=== PATIENT | male | born 1945 | race Caucasian/White ===

== ENCOUNTER 2017-05-28 05:19 | Emergency (ER) | payer MEDICARE, OTHER ==
--- NOTE | 2017-05-28 05:53 | EDM.PDOC ---
ED HPI GENERAL MEDICAL PROBLEM - General Chief Complaint: Genitourinary Problem Stated Complaint: BLOOD IN URINE Time Seen by Provider: 05/28/17 05:50 Source of Information: Reports: Patient, RN Notes Reviewed - History of Present Illness INITIAL COMMENTS - FREE TEXT/NARRATIVE: 71-year-old gentleman had an episode of hematuria about an hour ago at home and also when he did spit into the toilet or saying there was blood-tinged to his sputum. He has not been coughing. He is not had a nosebleed. He is not aware of biting his tongue or any sores or lesions within his mouth. He is on xarelto for chronic atrial fibrillation. He does not feel weak dizzy or lightheaded. He is never had hematuria before. He has not been having any other bleeding type difficulties or easy bruising. - Related Data Allergies Allergy/AdvReac Type Severity Reaction Status Date / Time pseudocholinesterase Allergy Cannot Uncoded 05/28/17 05:29 Remember Home Meds: Home Meds Aspirin 81 mg PO DAILY 05/28/17 [History] Finasteride 5 mg PO DAILY 05/28/17 [History] Glucosamine/Chondro Gold A [Cosamin DS] 1 tab PO BID 05/28/17 [History] Losartan/Hydrochlorothiazide [Losartan-HCTZ 100-12.5 MG] 1 tab PO DAILY [History] Metoprolol Tartrate 50 mg PO DAILY 05/28/17 [History] Rivaroxaban [Xarelto] 20 mg PO DAILY 05/28/17 [History] Simvastatin [Zocor] 20 mg PO DAILY 05/28/17 [History] amLODIPine [Norvasc] 2.5 mg PO DAILY 05/28/17 [History] Past Medical History Cardiovascular History: Reports: Afib, High Cholesterol, Hypertension - Past Surgical History GI Surgical History: Reports: Appendectomy Social & Family History - Family History Family Medical History: Noncontributory - Tobacco Use Smoking Status *Q: Never Smoker Second Hand Smoke Exposure: No - Caffeine Use Caffeine Use: Reports: Coffee - Recreational Drug Use Recreational Drug Use: No ED ROS GENERAL - Review of Systems Review Of Systems: See Below Constitutional: Denies: Fever, Chills, Diaphoresis HEENT: Denies: Throat Pain Respiratory: Denies: Shortness of Breath, Pleuritic Chest Pain, Hemoptysis Cardiovascular: Denies: Chest Pain GI/Abdominal: Denies: Abdominal Pain, Nausea, Vomiting Musculoskeletal: Reports: No Symptoms Skin: Denies: Bruising, Rash Neurological: Denies: Dizziness ED EXAM, RENAL/ - Physical Exam Exam: See Below General Appearance: Alert, No Apparent Distress Throat/Mouth: Normal Oropharynx, Other (He has a trace of blood tinged saliva right cheek but no bleeding site identified) Neck: Supple, Full Range of Motion Respiratory/Chest: No Respiratory Distress, Lungs Clear, Normal Breath Sounds Cardiovascular: Regular Rate, Rhythm GI/Abdominal: Soft, Non-Tender. No: Guarding Neurological: Alert, Oriented, No Motor/Sensory Deficits Skin Exam: Warm, Dry, Normal Color Course - Vital Signs Last Recorded V/S: Last Vital Signs Temp 95.2 F L 05/28/17 05:25 Pulse 81 05/28/17 05:25 Resp 16 05/28/17 05:25 BP 160/103 H 05/28/17 05:25 Pulse Ox 98 05/28/17 05:25 - Orders/Labs/Meds Labs: Laboratory Tests 05/28/17 05/28/17 Range/Units 05:40 06:10 WBC 5.06 (4.23-9.07) K/mm3 RBC 5.04 (4.63-6.08) M/mm3 Hgb 15.9 (13.7-17.5) gm/L Hct 45.2 (40.1-51.0) % MCV 89.7 (79.0-92.2) fl MCH 31.5 (25.7-32.2) pg MCHC 35.2 (32.2-35.5) g/dl RDW Std Deviation 42.0 (35.1-43.9) fL Plt Count 172 (163-337) K/mm3 MPV 9.8 (9.4-12.3) fl Neut % (Auto) 56.1 (34.0-67.9) % Lymph % (Auto) 29.4 (21.8-53.1) % [place] % (Auto) 10.1 (5.3-12.2) % Eos % (Auto) 3.6 (0.8-7.0) Baso % (Auto) 0.6 (0.1-1.2) % Neut # (Auto) 2.84 (1.78-5.38) K/mm3 Lymph # (Auto) 1.49 (1.32-3.57) K/mm3 [place] # (Auto) 0.51 (0.30-0.82) K/mm3 Eos # (Auto) 0.18 (0.04-0.54) K/mm3 Baso # (Auto) 0.03 (0.01-0.08) K/mm3 Urine Color Yellow (Yellow) Urine Appearance Clear (Clear) Urine pH 5.5 (5.0-8.0) Ur Specific [place] 1.020 (1.005-1.030) Urine Protein Negative (Negative) Urine Glucose (UA) Negative (Negative) Urine Ketones Negative (Negative) Urine Occult Blood Trace-lysed H (Negative) Urine Nitrite Negative (Negative) Urine Bilirubin Negative (Negative) Urine Urobilinogen 0.2 (0.2-1.0) Ur Leukocyte Esterase Negative (Negative) Urine RBC 0-5 (0-5) /hpf Urine WBC Not seen (0-5) /hpf Ur Epithelial Cells Not seen (0-5) /hpf Urine Bacteria Not seen (FEW) /hpf Urine Mucus Few (FEW) /hpf - Re-Assessments/Exams Free Text/Narrative Re-Assessment/Exam: 05/28/17 06:13 Patient has voided and UA has been sent over for analysis. There is not gross hematuria at this time. When I did have him spit into a cup saliva was definitely blood tinged. However when I did recheck his mouth once again no sign of where that was coming from. No active bleeding site visible at time of exam. 05/28/17 07:06. CBC is come back normal, UA trace RBCs only. I did have him spit again and once again the sputum is very mildly blood tinged, continues to show no obvious source. 05/28/17 07:10. We did hokum the threat monitoring analyst check rhythm, he is an atrophic and must running that chronically. Heart rate 79. I did look in his mouth again for any source of obvious bleeding and once again no sores visible. I will have him stop Zarrella toe and aspirin for 2 days. Discharge instructions as documented. Departure - Departure Time of Disposition: :17 Disposition: Home, Self-Care 01 Condition: Fair Clinical Impression: Hemorrhage Hematuria Qualifiers: Hematuria type: unspecified type Qualified Code(s): R31.9 - Hematuria, unspecified - Discharge Information Referrals: Ethan Jackson MD [Primary Care Provider] - Forms: ED Department Discharge Additional Instructions: No source of bleeding visible inside your mouth while here in the ED. your blood counts were normal, urinalysis was clear. It is recommended that you do stop your Xarelto and aspirin for 2 days and then resume as previously prescribed as long as you are having no further bleeding difficulty. Follow-up with Dr. Jackson as needed, return to ED if symptoms worsening in any way.
== END 2017-05-28 07:26 | disposition home or self-care (01) ==
LOC: JD.ED 05:19
DX: R58 Hemorrhage, not elsewhere classified (principal); R31.9 Hematuria, unspecified; I10 Essential (primary) hypertension; Z79.82 Long term (current) use of aspirin; Z79.899 Other long term (current) drug therapy
CPT/HCPCS: 36415; 81001; 85025; 99282; 99283

== ENCOUNTER 2019-03-08 14:59 | Emergency (ER) | payer MEDICARE, OTHER ==
--- NOTE | 2019-03-08 15:44 | EDM.PDOC ---
ED HPI GENERAL MEDICAL PROBLEM - General Chief Complaint: Lower Extremity Injury/Pain Stated Complaint: SWELLING AND REDNESS IN FOOT AFTER SURGERY Time Seen by Provider: 03/08/19 15:28 Source of Information: Reports: Patient History Limitations: Reports: No Limitations - History of Present Illness INITIAL COMMENTS - FREE TEXT/NARRATIVE: 73-year-old male presents the ED for evaluation of surgical wound right leg. Patient had a total knee replacement carried up by Dr. Souza orthopedic surgeon at [facility] in [facility] one week ago. Patient is on Xarelto 20 mg once daily because of chronic atrial fibrillation. Apparently was taken off the medication only for the day prior to surgery. Placed back on the day after surgery. He states the knee itself of course feel stiff and was only hurting bad for a couple of days. He's taken occasional tramadol tablet for pain otherwise only Tylenol. He is started to home physiotherapy exercise program at [facility]. He's been icing the wound for the most part. Concern arose today where the people looked at his leg and identified that he had bruising extensively elevated down the leg including his ankle foot and plantar surface of the foot. He therefore came to the ED for evaluation. He is walking with a walker. Onset: Gradual Onset Date: 03/01/19 (Had right total knee replacement a week ago in [place].) Duration: Day(s):, Getting Worse (Bruising and swelling in the right lower extremity of seem to be getting worse.) Location: Reports: Lower Extremity, Right Quality: Reports: Ache (Mild ache in the knee itself. No pain in the foot or ankle) Severity: Mild Improves with: Reports: None Worsens with: Reports: None Context: Reports: Other (Had right total knee replacement week ago.). Denies: Activity, Exercise, Lifting, Sick Contact, Trauma Associated Symptoms: Reports: Rash (Its extensive ecchymoses of the entire right leg with associated swelling.). Denies: Confusion, Chest Pain, Cough, cough w sputum, Diaphoresis, Fever/Chills, Headaches, Loss of Appetite, Malaise , Nausea/Vomiting, Seizure Treatments CAN SEALER: Reports: Acetaminophen, Other (see below) - Related Data Allergies Allergy/AdvReac Type Severity Reaction Status Date / Time pseudocholinesterase Allergy Cannot Uncoded 03/08/19 15:20 Remember Home Meds: Home Meds Aspirin 81 mg PO DAILY 05/28/17 [History] Finasteride 5 mg PO DAILY 05/28/17 [History] Rivaroxaban [Xarelto] 20 mg PO DAILY 05/28/17 [History] Acetaminophen 650 mg PO Q6H 03/08/19 [History] Famotidine 20 mg PO BID 03/08/19 [History] Losartan [Cozaar] 100 mg PO DAILY 03/08/19 [History] Meloxicam 15 mg PO BEDTIME 03/08/19 [History] Metoprolol Succinate [Toprol XL 50mg] 50 mg PO DAILY 03/08/19 [History] Polyethylene Glycol 3350 [MiraLAX] 17 gm PO DAILY 03/08/19 [History] Sennosides/Docusate Sodium [Senna-Docusate Sodium Tablet] 1 tab PO BID 03/08/19 [History] atorvaSTATin [Lipitor] 20 mg PO DAILY 03/08/19 [History] hydroCHLOROthiazide [Hydrochlorothiazide] 50 mg PO DAILY 03/08/19 [History] oxyCODONE 5 - 10 mg PO Q4H PRN 03/08/19 [History] traMADol [Ultram] 50 mg PO Q6H PRN 03/08/19 [History] Past Medical History Cardiovascular History: Reports: Afib (Is on baby aspirin and Eliquis daily), High Cholesterol, Hypertension Musculoskeletal History: Reports: Arthritis (Involving right knee primarily both hips low back), Osteoarthritis - Past Surgical History GI Surgical History: Reports: Appendectomy Musculoskeletal Surgical History: Reports: Knee Replacement (Right total knee replacement carried out March 01) Social & Family History - Family History Family Medical History: Noncontributory - Caffeine Use Caffeine Use: Reports: Coffee - Living Situation & Occupation Living situation: Reports: , with Spouse (Spouse has multiple sclerosis. Currently staying at [facility] for rehabilitation.) Occupation: Retired Review of Systems - Review of Systems Review Of Systems: See Below Constitutional: Denies: Chills, Diaphoresis, Fever, Weakness, Other Eyes: Reports: Glasses Nose: Reports: No Symptoms Mouth/Throat: Reports: No Symptoms Respiratory: Reports: No Symptoms. Denies: Shortness of Breath, Wheezing, Pleuritic Chest Pain Cardiovascular: Reports: Other (Chronic atrial fibrillation for many years. He is currently on Xarelto 20 mg once daily.) GI/Abdominal: Reports: No Symptoms Genitourinary: Reports: Other (Apparently his urine is dark in color as reported by nurse at [facility].) Musculoskeletal: Reports: Other (Patient presented to the ED at the request of nursing staff from [facility]. He is 1 week post total right knee replacement. Self is markedly ecchymotic both above and below the surgical wound including ecchymoses down to the foot and ankle. This is because he is on Xarelto and his expressed a lot more soft tissue bleeding than would be normally anticipated.) Skin: Reports: Bruising (Has ecchymoses both the problem below the knee on the right side.) Neurological: Reports: No Symptoms, Difficulty Walking (Due to right total knee replacement is walking with a walker.). Denies: Confusion, Dizziness, Headache , Numbness, Syncope, Tingling, Weakness Psychiatric: Reports: No Symptoms ED EXAM, GENERAL - Physical Exam Exam: See Below Exam Limited By: No Limitations General Appearance: Alert, WD/WN, No Apparent Distress, Other (Vital signs are normal with pulse 91 I A. fib controlled rate. Respiratory to 16 sats 97% on room air BP mildly elevated 148/85.) Eye Exam: Bilateral Eye: Normal Inspection Cardiovascular: Normal Peripheral Pulses, No Gallop (Atrial fibrillation chronically), No Murmur, No Rub, Irregularly Irregular Peripheral Pulses: 0: Posterior Tibial (R) (Not able to feel pulses in his right foot due to severe edema. They are found on Doppler ultrasound.), Dorsalis Pedis (R) GI/Abdominal: Normal Bowel Sounds, Soft, Non-Tender, No Organomegaly. No: No Abnormal Bruit, No Mass, Pelvis Stable Extremities: Other (Examination of his right lower extremity shows ecchymoses posterior thigh almost up to the pelvic brim. There is significant ecchymoses and swelling of the total knee at the site of surgery. The galdino are in good position with no sign of infection. There is increased edema of the entire leg down to the foot with edema of the dorsal foot as well. There is ecchymoses scattered throughout the entire right lower extremity to include the calcaneus and plantar surface of the foot especially medially. This is excessive amount of bruising and swelling but it's secondary to being on Xarelto for his A. fib. There is clinically no evidence of a DVT. The foot is warm to palpation.) Neurological: Alert, Oriented, CN II-XII Intact, Normal Cognition, Other ( Walking with aid of a walker.) Psychiatric: Normal Affect, Normal Mood Skin Exam: Warm, Dry, Intact, Ecchymosis, Other (Patches of erythema anterior right leg but not significantly warm to suggest a cellulitis.) Course - Vital Signs Last Recorded V/S: Last Vital Signs Temp 36.2 C 03/08/19 15:17 Pulse 91 03/08/19 15:17 Resp 16 03/08/19 15:17 BP 148/85 H 03/08/19 15:17 Pulse Ox 97 03/08/19 15:17 - Orders/Labs/Meds Orders: Active Orders 24 hr Category Date Time Status URINALYSIS W/MICROSCOPIC [UA W/MICROSCOPIC] [URIN] Stat Lab 03/08/19 16:00 Received - Radiology Interpretation Free Text/Narrative:: 73-year-old male presents to the ED for evaluation of right total knee surgical wound which was done a week ago by Dr. Souza at [facility] in [place]. Is on Zaroxolyn 20 mg daily and was discontinued for one day preoperatively and then started the following day. Therefore he has suffered a lot more bruising to the lower extremity than one would anticipate. Oozing travels all way down the leg to the medial aspect of his foot involving the calcaneus and plantar surface of the foot. He also has ecchymoses up to his groin posteriorly on the thigh. The wound itself is looking normal and the dressings were changed as it was dried blood over the galdino. And edema in the lower extremity but no signs of a blood clot clinically. Analysis was checked because of reported dark urine it does contain a bit of urobilinogen which is breakdown product of red cells secondary to body breaking down the leakage of blood into his right lower extremity after surgery. Patient advised to simply drink a little more fluid and he admits that he's not been drinking as much fluid so he does not get up to the bathroom so often. Patient reassured. Dressing changes were done. Expect swelling to go down over the next week to 10 days. - Re-Assessments/Exams Free Text/Narrative Re-Assessment/Exam: 03/08/19 16:13 urine provided was dipped in the department. It shows no signs of infection. It is showing 3+ urobilinogen and trace of red blood cells. Urobilinogen is making the urine looked darker than normal but in the ED it looked dark rody in color. Departure - Departure Time of Disposition: 15:41 Disposition: Home, Self-Care 01 Condition: Fair Clinical Impression: Visit for wound check - Discharge Information *PRESCRIPTION DRUG MONITORING PROGRAM REVIEWED*: Not Applicable *COPY OF PRESCRIPTION DRUG MONITORING REPORT IN PATIENT TIA: Not Applicable Instructions: Total Knee Replacement, Care After, [id number] Referrals: Ethan Jackson MD [Primary Care Provider] - Forms: ED Department Discharge Additional Instructions: Evaluation in the emergency room today in regards to surgical review after having right total knee replacement done by Dr. Souza at [facility] one week ago. You're on Eliquis chronically and were taken off for short period of time before the surgery was completed started back on the following day of her surgery. Glucose today as there is marked edema/soft tissue swelling in the left lower extremity with marked bruising both above and below the surgical wound with bruises showing up around the ankle and plantar surface of the foot. On review the wound itself is healing adequately. Galdino are in good position with no signs of infection. 100 areas of erythema anterior aspect of the leg which is still due to blood underneath the skin that is been pulled down to the foot by gravity drainage. There is no clinically no evidence of deep venous thrombosis in the right lower extremity. There is increased swelling in the lower extremity due to being on Eliquis. At this time I do not appreciate any signs of infection in the lower extremity. Continue physical therapy exercise programs as per your norm and walk as you can tolerate. Not walking any to elevate the leg is much as possible to promote drainage and perform calf contractions by lifting your toes up as high as possible in squeezing the calf muscles for 5 seconds as time at least 10 times per hour. Heat packs to the lower extremity would also help your body will reabsorb the blood that is under the skin . Ice for comfort as needed but he will be more effective in helping the swelling go down over the next week. The bruising will take a good 3 weeks to go away completely. The dressing was covered with dried blood and therefore the dressing was changed on the surgical wound. Continue all medications as you are already doing. Suggest heat packs to the entire leg for one half hour out of every 4 hours while awake until the swelling goes down. Of note the urinalysis done in the ED is completely normal other than a trace of urobilinogen which would make the urine darker in color than normal. [place] gravity was 1.020 indicating it is moderately concentrated which causes look darker than normal. - My Orders Last 24 Hours: My Active Orders 03/08/19 16:00 URINALYSIS W/MICROSCOPIC [UA W/MICROSCOPIC] [URIN] Stat - Assessment/Plan Last 24 Hours: My Active Orders 03/08/19 16:00 URINALYSIS W/MICROSCOPIC [UA W/MICROSCOPIC] [URIN] Stat
== END 2019-03-08 16:25 | disposition home or self-care (01) ==
LOC: JD.ED 14:59
DX: M96.840 Postprocedural hematoma of a musculoskeletal structure following a musculoskeletal system procedure (principal); I48.91 Unspecified atrial fibrillation; E78.00 Pure hypercholesterolemia, unspecified; Z88.8 Allergy status to other drugs, medicaments and biological substances; Z79.82 Long term (current) use of aspirin; Z79.899 Other long term (current) drug therapy; Z79.01 Long term (current) use of anticoagulants
CPT/HCPCS: 81001; 99283

== ENCOUNTER 2022-07-25 11:36 | Inpatient (IN) | payer MEDICARE, OTHER ==
[2022-07-25] MEDS ORDERED: Metoclopramide 10 MG/2 ML SDV IVPUSH ONE (11:49)
[2022-07-25] MEDS ORDERED: Dextrose 5%-0.9% NaCl 1,000 ML IV SCH (12:00)
[2022-07-25] MEDS ORDERED: Iopamidol 612 MG/ML 50 ML SDV IVPUSH ONE (13:15)
[2022-07-25] MEDS ORDERED: Iopamidol 612 MG/ML 100 ML Bottle IVPUSH ONE (13:15)
[2022-07-25] MEDS ORDERED: Sodium Chloride 0.9% 10 ML Syringe FLUSH PRN (13:15)
[2022-07-25] MEDS ORDERED: Lidocaine 4% Top Soln 50 ML Bottle MUCMEM ONE (14:49)
[2022-07-25] MEDS ORDERED: oxyCODONE 5 MG Tab PO PRN (15:43)
[2022-07-25] MEDS ORDERED: Ondansetron 4 MG Tab.DIS PO PRN (15:43)
[2022-07-25 16:49] LABS: CORONAVIRUS COVID-19 NAA NEGATIVE (NEGATIVE)
[2022-07-25] MEDS: Sodium Chloride 0.9% 1,000 ML IV SCH (17:46)
[2022-07-26] MEDS: Sodium Chloride 0.9% 1,000 ML IV SCH (01:55)
[2022-07-26] MEDS ORDERED: Morphine 2 MG/ML SYRINGE IVPUSH PRN (08:26)
[2022-07-26] MEDS ORDERED: Metoprolol Tartrate 5 MG/5 ML SDV IVPUSH PRN (08:26)
[2022-07-26] MEDS ORDERED: Ondansetron 4 MG/2 ML SDV IVPUSH PRN (08:26)
[2022-07-26 08:54] LABS: HEMOGLOBIN A1C 6.9 %
[2022-07-26] MEDS ORDERED: Metoprolol Succinate 50 MG Tab.ER PO SCH (09:00)
[2022-07-26] MEDS: Heparin Sodium 5,000 Units/ML Vial SUBCUT SCH ×2 (09:49→17:13)
[2022-07-26] MEDS: Lactated Ringers 1,000 ML IV SCH ×2 (10:36→17:13)
[2022-07-26] MEDS ORDERED: Magnesium Sulfate/Water 2 GM in Premix Bag 1 BAG IV ONE (13:00)
[2022-07-26] MEDS ORDERED: Pantoprazole 40 MG Vial IVPUSH ONE (13:15)
[2022-07-26] MEDS ORDERED: Albuterol/Ipratropium 3.0-0.5 MG/3 ML Neb Soln NEB PRN (14:11)
[2022-07-26] MEDS: Pantoprazole 40 MG Vial IVPUSH SCH (20:59)
[2022-07-27] MEDS: Lactated Ringers 1,000 ML IV SCH ×2 (01:10→08:47)
[2022-07-27] MEDS: Heparin Sodium 5,000 Units/ML Vial SUBCUT SCH ×3 (01:10→16:47)
[2022-07-27] MEDS: Pantoprazole 40 MG Vial IVPUSH SCH ×2 (08:48→21:45)
[2022-07-27] MEDS ORDERED: Diatrizoate Meglumine/Diatrizoate Sodium 37% 120 ML Bottle PO ONE (12:26)
[2022-07-28] MEDS: Heparin Sodium 5,000 Units/ML Vial SUBCUT SCH ×2 (01:00→09:25)
[2022-07-28] MEDS: Pantoprazole 40 MG Vial IVPUSH SCH (09:26)
== END 2022-07-28 14:03 | disposition home or self-care (01) | DRG 389 ==
LOC: JD.ED 11:36 → JD.MS 15:18
PROVIDERS: ADMIT Internal Medicine; ATTEND Internal Medicine
PROC: 0D9670Z Drainage of Stomach with Drainage Device, Via Natural or Artificial Opening (ICD-10-PCS; principal; 2022-07-25)
DX: K56.609 Unspecified intestinal obstruction, unspecified as to partial versus complete obstruction (principal); K56.50 Intestinal adhesions [bands], unspecified as to partial versus complete obstruction; R55 Syncope and collapse; S00.01XA Abrasion of scalp, initial encounter; R53.1 Weakness; R29.6 Repeated falls; E87.20 Acidosis, unspecified; I48.20 Chronic atrial fibrillation, unspecified; J10.1 Influenza due to other identified influenza virus with other respiratory manifestations; E78.00 Pure hypercholesterolemia, unspecified; Z79.01 Long term (current) use of anticoagulants; I10 Essential (primary) hypertension; Z79.84 Long term (current) use of oral hypoglycemic drugs; M19.90 Unspecified osteoarthritis, unspecified site; W18.30XA Fall on same level, unspecified, initial encounter; Z20.822 Contact with and (suspected) exposure to COVID-19; H91.90 Unspecified hearing loss, unspecified ear; Z96.651 Presence of right artificial knee joint; Z66 Do not resuscitate; K56.7 Ileus, unspecified; B99.9 Unspecified infectious disease; E78.5 Hyperlipidemia, unspecified; E83.42 Hypomagnesemia; Z79.82 Long term (current) use of aspirin; Z79.899 Other long term (current) drug therapy; Z88.8 Allergy status to other drugs, medicaments and biological substances
CPT/HCPCS: 0241U; 36415; 43752; 70450; 70450-26; 71045; 71045-26; 74018; 74018-26; 74019; 74019-26; 74177; 74177-26; 80053; 81001; 82947; 83036; 83605; 83735; 83880; 84100; 84484; 85025; 85610; 85730; 86140; 93005; 93010; 93307; 96361; 96374; 97162-GP; 99222; 99232; 99233; 99239; 99284; 99285-25; C9113; J1644; J2765; J3475; J3490; J7030; J7042; J7120; Q9963; Q9967

== ENCOUNTER 2022-10-09 10:23 | Emergency (ER) | payer MEDICARE, OTHER ==
[2022-10-09] MEDS ORDERED: Sodium Chloride 0.9% 10 ML Syringe FLUSH PRN (10:32)
[2022-10-09] MEDS ORDERED: Sodium Chloride 0.9% 1,000 ML IV ONE (11:18)
== END 2022-10-09 14:01 | disposition home or self-care (01) ==
LOC: JD.ED 10:23
DX: I95.89 Other hypotension (principal); I48.91 Unspecified atrial fibrillation; E78.00 Pure hypercholesterolemia, unspecified; I10 Essential (primary) hypertension; Z79.01 Long term (current) use of anticoagulants; Z79.899 Other long term (current) drug therapy; Z88.8 Allergy status to other drugs, medicaments and biological substances
CPT/HCPCS: 36415; 71045; 80053; 83735; 83880; 84484; 85025; 85610; 85730; 93005; 96360; 99285; J7030; 93010; 99283

== ENCOUNTER 2022-10-24 08:44 | Emergency (ER) | payer MEDICARE, OTHER ==
[2022-10-24] MEDS ORDERED: Sodium Chloride 0.9% 10 ML Syringe FLUSH PRN (10:09)
[2022-10-24 14:12] LABS: CORONAVIRUS COVID-19 NAA POSITIVE (NEGATIVE)
== END 2022-10-24 14:55 | disposition home or self-care (01) ==
LOC: JD.ED 08:44
DX: U07.1 COVID-19 (principal); I48.91 Unspecified atrial fibrillation; E78.00 Pure hypercholesterolemia, unspecified; I10 Essential (primary) hypertension; Z88.8 Allergy status to other drugs, medicaments and biological substances; Z79.01 Long term (current) use of anticoagulants; Z79.899 Other long term (current) drug therapy
CPT/HCPCS: 0241U; 36415; 71045; 80053; 83735; 83880; 84443; 84484; 85025; 86140; 93005; 99285; J3490; 93010; 99283

== ENCOUNTER 2022-12-11 07:48 | Day surgery (SDC) | payer MEDICARE, OTHER ==
[2022-12-11] MEDS ORDERED: Lactated Ringers 1,000 ML IV SCH (08:00)
[2022-12-11] MEDS ORDERED: Lidocaine 1%/Sod Bicarbonate in NS 8.4% 1 ML Syringe IDERM PRN (08:00)
[2022-12-11] MEDS ORDERED: Propofol 200 MG/20 ML SDV ONE ×2 (08:48→09:47)
[2022-12-11] MEDS ORDERED: fentaNYL 100 MCG/2 ML SDV ONE (08:48)
[2022-12-11] MEDS ORDERED: Lidocaine 1% 4 ML ONE (08:48)
[2022-12-11] MEDS ORDERED: Sodium Chloride 0.9% 10 ML Syringe FLUSH SCH (09:00)
== END 2022-12-11 11:30 | disposition home or self-care (01) ==
LOC: JD.SDS 07:48
PROVIDERS: ATTEND Surgery
DX: K29.50 Unspecified chronic gastritis without bleeding (principal); K56.609 Unspecified intestinal obstruction, unspecified as to partial versus complete obstruction; K21.9 Gastro-esophageal reflux disease without esophagitis; K63.89 Other specified diseases of intestine; Q43.8 Other specified congenital malformations of intestine; I10 Essential (primary) hypertension; E78.00 Pure hypercholesterolemia, unspecified; G47.33 Obstructive sleep apnea (adult) (pediatric); R73.03 Prediabetes; I48.21 Permanent atrial fibrillation; Z98.890 Other specified postprocedural states; Z90.49 Acquired absence of other specified parts of digestive tract; Z79.899 Other long term (current) drug therapy; Z79.84 Long term (current) use of oral hypoglycemic drugs; Z87.891 Personal history of nicotine dependence
CPT/HCPCS: 43239; 45378; J2704; J3010; J7120; J3490

== ENCOUNTER 2023-04-29 10:57 | Emergency (ER) | payer MEDICARE, OTHER ==
[2023-04-29] MEDS ORDERED: Sodium Chloride 0.9% 1,000 ML IV SCH (11:30)
[2023-04-29 11:45] LABS: BASOPHILS PERCENT AUTO 0.3 % (0.0-1.0); EOSINOPHILS ABSOLUTE AUTO 0.1 K/mm3 (0.0-0.4); EOSINOPHILS PERCENT AUTO 0.5 % (0.0-6.0); HEMATOCRIT 44.3 % (42.0-52.0); HEMOGLOBIN 15.1 gm/dl (14.0-18.0); IMMATURE GRAN ABSOLUTE AUTO 0.04 K/mm3 (0.00-0.05); IMMATURE GRAN PERCENT AUTO 0.3 % (0.0-0.4); LYMPHOCYTES ABSOLUTE AUTO 0.9 K/mm3 (1.0-4.8); LYMPHOCYTES PERCENT AUTO 7.8 % (24.0-44.0); MEAN CORPUSCULAR HEMOGLOBIN 32.5 pg (28.0-32.0); MEAN CORPUSCULAR HGB CONC 34.1 g/dl (32.0-36.0); MEAN CORPUSCULAR VOLUME 95.3 fl (83.0-99.0); MONOCYTES ABSOLUTE AUTO 0.9 K/mm3 (0.0-0.8); MONOCYTES PERCENT AUTO 7.6 % (0.0-8.0); NEUTROPHILS ABSOLUTE AUTO 9.7 K/mm3 (1.8-7.7); NEUTROPHILS PERCENT AUTO 83.5 % (41.0-71.0); PLATELET COUNT,PLT 171 K/mm3 (150-400); RED BLOOD CELL COUNT 4.65 M/mm3 (4.52-5.90); WHITE BLOOD CELL COUNT,WBC 11.58 K/mm3 (3.9-11.3)
[2023-04-29] MEDS ORDERED: Metoclopramide 10 MG/2 ML SDV IVPUSH ONE (11:52)
[2023-04-29 12:08] LABS: ANION GAP 17.3 (5-15); BILIRUBIN TOTAL 1.2 mg/dL (0.2-1.0); C-REACTIVE PROTEIN 0.6 mg/dL (<1.0); CALCIUM 9.6 mg/dL (8.5-10.1); EST CRCL DRUG DOSING (CG) 67.69 mL/min; POTASSIUM,K 4.3 mEq/L (3.5-5.1); PROTEIN TOTAL,TP 7.9 g/dl (6.4-8.2)
[2023-04-29 13:05] LABS: APPEARANCE,URINE CLEAR (Clear); BILIRUBIN,URINE NEGATIVE (Negative); COLOR,URINE YELLOW (Yellow); GLUCOSE,URINE NEGATIVE (Negative); KETONES,URINE TRACE (Negative); LEUKOCYTE ESTERASE,URINE NEGATIVE (Negative); NITRITE,URINE NEGATIVE (Negative); OCCULT BLOOD,URINE NEGATIVE (Negative); PH,URINE 5.5 (5.0-8.0); PROTEIN,URINE NEGATIVE (Negative)
[2023-04-29] MEDS ORDERED: Magnesium Citrate Solution 296 ML Bottle PO ONE (14:57)
[2023-04-29 19:55] LABS: BACTERIA,URINE FEW /hpf (FEW); MUCUS,URINE MANY /hpf (FEW); RBC,URINE 0-5 /hpf (0-5); SQUAMOUS EPITHELIAL CELLS,UR 0-5 /hpf (0-5); WBC,URINE 0-5 /hpf (0-5)
== END 2023-04-29 15:28 | disposition home or self-care (01) ==
LOC: JD.ED 10:57
DX: S00.03XA Contusion of scalp, initial encounter (principal); R55 Syncope and collapse; K56.600 Partial intestinal obstruction, unspecified as to cause; I48.91 Unspecified atrial fibrillation; E78.00 Pure hypercholesterolemia, unspecified; I10 Essential (primary) hypertension; Z88.8 Allergy status to other drugs, medicaments and biological substances; Z79.84 Long term (current) use of oral hypoglycemic drugs; Z79.01 Long term (current) use of anticoagulants; Z79.899 Other long term (current) drug therapy; W18.30XA Fall on same level, unspecified, initial encounter; Y92.481 Parking lot as the place of occurrence of the external cause
CPT/HCPCS: 36415; 70450; 74018; 80053; 81001; 82947; 84484; 85025; 86140; 93005; 96361; 96374; 99285; A9270; J2765; J7030; 93010; 99284

== ENCOUNTER 2024-05-26 05:51 | Emergency (ER) | payer MEDICARE, OTHER ==
[2024-05-26] MEDS ORDERED: Sodium Chloride 0.9% 10 ML Syringe FLUSH PRN (06:02)
[2024-05-26 07:14] LABS: BASOPHILS PERCENT AUTO 0.5 % (0.0-1.0); EOSINOPHILS ABSOLUTE AUTO 0.1 K/mm3 (0.0-0.4); EOSINOPHILS PERCENT AUTO 2.5 % (0.0-6.0); HEMOGLOBIN 14.9 gm/dl (14.0-18.0); IMMATURE GRAN ABSOLUTE AUTO 0.03 K/mm3 (0.00-0.05); IMMATURE GRAN PERCENT AUTO 0.5 % (0.0-0.4); LYMPHOCYTES ABSOLUTE AUTO 1.1 K/mm3 (1.0-4.8); LYMPHOCYTES PERCENT AUTO 20.4 % (24.0-44.0); MEAN CORPUSCULAR HEMOGLOBIN 31.6 pg (28.0-32.0); MEAN CORPUSCULAR HGB CONC 34.7 g/dl (32.0-36.0); MEAN CORPUSCULAR VOLUME 91.3 fl (83.0-99.0); MEAN PLATELET VOLUME 10.1 fl (9.4-12.4); MONOCYTES ABSOLUTE AUTO 0.5 K/mm3 (0.0-0.8); MONOCYTES PERCENT AUTO 8.9 % (0.0-8.0); NEUTROPHILS ABSOLUTE AUTO 3.7 K/mm3 (1.8-7.7); NEUTROPHILS PERCENT AUTO 67.2 % (41.0-71.0); PLATELET COUNT,PLT 163 K/mm3 (150-400); RED BLOOD CELL COUNT 4.71 M/mm3 (4.52-5.90); WHITE BLOOD CELL COUNT,WBC 5.53 K/mm3 (3.9-11.3)
[2024-05-26 07:57] LABS: ALBUMIN 3.6 g/dl (3.4-5.0); ANION GAP 13.3 (5-15); BILIRUBIN TOTAL 0.7 mg/dL (0.2-1.0); EST CRCL DRUG DOSING (CG) 66.58 mL/min; MAGNESIUM 1.8 mg/dL (1.8-2.4); POTASSIUM,K 4.3 mEq/L (3.5-5.1); PROTEIN TOTAL,TP 7.2 g/dl (6.4-8.2)
[2024-05-26 08:35] LABS: APPEARANCE,URINE CLEAR (Clear); BILIRUBIN,URINE NEGATIVE (Negative); COLOR,URINE YELLOW (Yellow); GLUCOSE,URINE NEGATIVE (Negative); KETONES,URINE NEGATIVE (Negative); LEUKOCYTE ESTERASE,URINE NEGATIVE (Negative); NITRITE,URINE NEGATIVE (Negative); OCCULT BLOOD,URINE NEGATIVE (Negative); PROTEIN,URINE NEGATIVE (Negative)
== END 2024-05-26 10:49 | disposition home or self-care (01) ==
LOC: JD.ED 05:51
DX: R42 Dizziness and giddiness (principal); I48.91 Unspecified atrial fibrillation; E78.00 Pure hypercholesterolemia, unspecified; I10 Essential (primary) hypertension; Z90.49 Acquired absence of other specified parts of digestive tract; Z79.84 Long term (current) use of oral hypoglycemic drugs; Z79.899 Other long term (current) drug therapy; Z88.8 Allergy status to other drugs, medicaments and biological substances
CPT/HCPCS: 36415; 71045; 71045-26; 80053; 81003; 83735; 83880; 84484; 85025; 93005; 93010; 99284